=== PATIENT | male | born 1950 | race Caucasian/White ===

== ENCOUNTER 2020-07-21 08:16 | Day surgery (SDC) | payer MEDICARE ==
[~2020-07-21] VITALS: Ht 182.9 cm; Wt 107.8 kg
[2020-07-21] MEDS ORDERED: NORCO 325 MG-7.1 TAB PO (08:26)
[2020-07-21] MEDS ORDERED: ELIQUIS 5MG PO (08:27)
[2020-07-21] MEDS ORDERED: PACERONE200 MG PO (08:27)
[2020-07-21] MEDS ORDERED: CRESTOR 10MG10 MG PO (08:28)
[2020-07-21] MEDS ORDERED: HCTZ 25MG TAB25 MG PO (08:28)
[2020-07-21] MEDS ORDERED: VASOTEC 10M10 MG/TAB PO (08:29)
[2020-07-21] MEDS ORDERED: JANUVIA50 MG PO (08:30)
[2020-07-21] MEDS ORDERED: FLOMAX 0.40.4 MG/CAP PO (08:30)
[2020-07-21] MEDS ORDERED: ASPIRIN E.C. 8181 MG PO (08:31)
[2020-07-21 09:09] VITALS: BP 146/97; PULSE 59; TEMP 98.1
[2020-07-21 09:16] LABS: HEMATOCRIT 45.6 % (42.0-52.0); HEMOGLOBIN 15.5 g/dl (13.5-18.0); MEAN CELL VOLUME 93 fl (80.0-100.0); MEAN CORPUSCULAR HEMOGLOBIN 32 pg (27.0-31.0); MEAN CORPUSCULAR HGB CONC 34 g/dl (33.0-37.0); MEAN PLATELET VOLUME 9.5 fl (7.4-10.4); PLATELET COUNT 183 K/mm3 (130-400); RED BLOOD COUNT 4.91 M/mm3 (4.20-5.60); REDCELL DISTRIBUTION WIDTH-CV 12.8 % (11.5-14.5)
[2020-07-21 09:25] LABS: INR 1.2 (0.8-3.0); PROTHROMBIN TIME 13.7 SECONDS (9.7-12.8)
[2020-07-21 09:30] LABS: CREATININE, serum 0.97 (0.66-1.25); MAGNESIUM 2.2 mg/dL (1.6-2.3)
[2020-07-21 09:45] VITALS: BP 134/83; PULSE 50
[2020-07-21 10:00] VITALS: BP 130/79; PULSE 48
[2020-07-21 10:01] LABS: THYROID STIMULATING HORMONE 1.16 uIU/mL (0.465-4.680)
[2020-07-21 10:23] VITALS: BP 138/66; PULSE 58
--- NOTE | 2020-07-21 10:28 | NUR ---
INT discontinued intact. VSS.
--- NOTE | 2020-07-21 10:39 | NUR ---
Discharge instructions given . Transferred to private car by christy
== END 2020-07-21 10:41 | disposition home or self-care (01) ==
LOC: COL.CAR 08:16
PROVIDERS: Internal Medicine Cardiovascular Disease
DX: I48.19 Other persistent atrial fibrillation (principal); I10 Essential (primary) hypertension; E78.2 Mixed hyperlipidemia; I51.7 Cardiomegaly; F17.210 Nicotine dependence, cigarettes, uncomplicated; Z79.01 Long term (current) use of anticoagulants; E11.9 Type 2 diabetes mellitus without complications; Z79.84 Long term (current) use of oral hypoglycemic drugs; Z79.899 Other long term (current) drug therapy; Z79.82 Long term (current) use of aspirin
CPT/HCPCS: J2704; J7040

== ENCOUNTER 2024-02-08 11:14 | Inpatient (IN) | payer MEDICARE ==
[~2024-02-08] VITALS: Ht 182.9 cm; Wt 83.7 kg
[~2024-02-08 11:14] MED LIST: ASPIRIN E.C. 8181 MG PO; CRESTOR 10MG10 MG PO; ELIQUIS 5MG PO; FLOMAX 0.40.4 MG/CAP PO; HCTZ 25MG TAB25 MG PO; JANUVIA50 MG PO; NORCO 325 MG-7.1 TAB PO; PACERONE200 MG PO; VASOTEC 10M10 MG/TAB PO
[2024-02-08] MEDS ORDERED: NORVASC 5MG5 MG/TAB PO (16:17)
[2024-02-08] MEDS ORDERED: TYLENOL 500MG500 MG PO (16:17)
[2024-02-08] MEDS ORDERED: CELEBREX 200MG200 MG PO (16:19)
[2024-02-08] MEDS ORDERED: NEURONTIN100 MG/CAP PO (16:20)
[2024-02-08] MEDS ORDERED: ZANAFLEX 4MG TAB4 MG PO (16:21)
[2024-02-08] MEDS ORDERED: OZEMPIC1 MG/0.71 SQ (16:23)
--- NOTE | 2024-02-08 19:50 | NUR ---
Patient arrived to room [address] Small at bedside to see patient. VS WNL.
--- NOTE | 2024-02-08 20:00 | NUR ---
Admission assessment complete. A&Ox3. Denies shortness of breath. C/O pain to neck-Dr Small is aware and has placed orders-waiting for verifcation by pharmacy. Noted to have an incision to back of neck-C Collar on per order. Ochoa cath with yellow urine-sediment/sand present. Mepilex to coccyx-CDI. Patient states he has a neurogenic bladder and this is common for his urine. Plan of care discussed for this shift to include meds/pain control/repositioning/calling for questions/concerns. verbalizes understanding. Repositioned in bed with pillow support. Will monitor.
[2024-02-08] MEDS ORDERED: Acetaminophen 500 MG TAB PO PRN (20:15)
[2024-02-08] MEDS ORDERED: Docusate Sodium 100 MG CAP PO PRN (20:15)
[2024-02-08] MEDS ORDERED: Sennosides/Docusate 8.6-50 MG TAB PO PRN (20:15)
[2024-02-08] MEDS ORDERED: tiZANidine 4 MG TAB PO PRN (20:15)
[2024-02-08] MEDS ORDERED: Naloxone 0.4 MG/ML VIAL IV PRN (20:15)
[2024-02-08] MEDS ORDERED: oxyCODONE 5 MG TAB PO PRN (20:15)
[2024-02-08 20:44] VITALS: BP 127/57; PULSE 67; TEMP 98.4
[2024-02-08 21:00] VITALS: BP_SYST 127
[2024-02-08] MEDS ORDERED: Gabapentin 100 MG CAP PO SCH (21:00)
[2024-02-08] MEDS ORDERED: Polyethylene Glycol 3350 17 GM PDS PO SCH (21:00)
[2024-02-08] MEDS ORDERED: Amiodarone 200 MG TAB PO SCH (21:00)
[2024-02-08] MEDS ORDERED: Celecoxib 200 MG CAP PO SCH (21:00)
[2024-02-08] MEDS ORDERED: Apixaban 5 MG TABLET PO SCH (21:00)
--- NOTE | 2024-02-08 21:15 | NUR ---
Patient has been very uncomfortable since arriving rating pain 10/10 on pain scale to neck/back. States ride to hospital "was rough" and is nauseated from the pain. Oxycodone/tylenol given per dr order. Will monitor.
[2024-02-08] MEDS ORDERED: Atorvastatin 20 MG TAB PO SCH (21:30)
[2024-02-09] MEDS ORDERED: COLACE 100100 MG/CAP PO
[2024-02-09] MEDS ORDERED: MIRALAX238G PO (00:02)
[2024-02-09 01:05] VITALS: BP_SYST 127
--- NOTE | 2024-02-09 05:02 | NUR ---
Patient had an uneventful night. Received oxycodone and tylenol for pain x1 with good relief. VS stable. Tolerating PO. INT to left forearm DCd-cath intact. Ochoa cath with dark yellow urine-sediment/sand present. Denies current needs. call light in reach. Will monitor.
[2024-02-09 05:35] VITALS: BP 146/79; PULSE 63; TEMP 97.6
[2024-02-09] MEDS ORDERED: amLODIPine 5 MG TAB PO SCH (09:00)
[2024-02-09] MEDS ORDERED: Rosuvastatin 10 MG **** subs to Atorvastatin 20 MG PO SCH (09:00)
[2024-02-09] MEDS ORDERED: hydroCHLOROthiazide 25 MG TAB PO SCH (09:00)
--- NOTE | 2024-02-09 10:28 | NUR ---
Shift report received from night RN. No events reported overnight. Pt sleeping in bed. C-collar on. Gabriela patent to DD w/ clear yellow urine. Pt denies the need for pain medication at this time. Call light in reach. Bed alarm on.
--- NOTE | 2024-02-09 12:19 | NUR ---
Pt sitting up in wheelchair eating lunch after set up help provided. Pt assisted w/ AD for eating. Other needs denied. Call light in reach. Chair alarm in place.
--- NOTE | 2024-02-09 13:24 | NUR ---
edge worker met with patient to welcome to unit and complete assessment. Patient reports he lives in [place] by himself. Best point of contact is Moises Figueroa (daughter) P# [phone] and second contact is Syl Colon (sister) P# [phone]. PCP is Dr. Hawkins, pharmacy is [facility]. No issues affording medications. Insurance is Medicare A and B. DPOA-HC is Moises, CATHY will request copy. DME is walker, electric scotter and wheelchair. Patient needs assistance with ADLS. Moises or Syl transports patient to and from appointments. Patient expressed he has a basement at his home but typically does not have to go down them. Patient has a ramp in the back of his home. Patient would like to return home if possible. CATHY contacted Moises whom expressed she will be bringing a copy of the DPOA-HC today. Moises also expressed their ultimate goal is for him to return home with maybe home health if he is safe to do so but understands they may have to look at LTC if he is unable to return home. CATHY explained CATHY will be in touch and keep updated on his progress. Moises explained when it comes time for the family meeting, she would be available anytime after Monday next week. CATHY will continue to follow along.
[2024-02-09 17:43] VITALS: BP 150/82; PULSE 54; TEMP 98
--- NOTE | 2024-02-09 17:56 | NUR ---
Pt incontinent of BM in pull-up. Pt assisted to toilet w/ sit-stand lift. Hygiene completed. Cath care completed. Ochoa cath patent to DD w/ dark yellow urine. Pt has 2 shallow open ulcers w/ pink to red wound bed w/o slough to left inner buttock w/ each ulcer measuring approx 0.6cm x 0.6 cm. Larger open ulcer w/ shallow red to pink wound bed w/o slough noted to coccyx measuring approx 2cm x 0.8cm. R inner buttock has 1 shallow ulcer w/ pink to red wound bed w/o slough measuring approx 0.5cm x 0.5 cm. Sacral mepilex applied over covering all ulcers. Pt has specialty air mattress on bed & pressure relieving cushion in wheelchair. Pt transferred from toilet to wheelchair at his request. Pt eating dinner independently w/ adaptive equipment after set up help was provided. Will continue to monitor.
[2024-02-09 19:30] VITALS: BP_SYST 150
--- NOTE | 2024-02-10 01:22 | NUR ---
Shift assessment completed- see documentation. Pt is alert and oriented. He was in his wheelchair at the bedside at time of assessment. He was complaining of 7/10 pain on his buttocks. PM meds were administered as ordered. He was transfered to the bed with the sit to stand lift. Pt was positioned on his left side. He now reports his pain to be a 1/10. He was again repositioned to be on his back now. He denies any other needs at this time. Call light left within reach and fall recautions in place.
[2024-02-10 05:44] VITALS: BP 138/74; PULSE 59; TEMP 98
[2024-02-10 06:30] VITALS: BP_SYST 138
--- NOTE | 2024-02-10 09:32 | NUR ---
Shift report received from night RN. No events reported overnight. Pt up to wheelchair for breakfast this morning. Pt ate independently w/ AD after set up help provided. Mepilex to coccyx CDI. Pt currently sleeping in bed w/ even & unlabored. Call light in reach.
--- NOTE | 2024-02-10 10:04 | NUR ---
Pt up to wheelchair w/ sit to stand lift.
--- NOTE | 2024-02-10 12:37 | NUR ---
Pt off unit w/ PT/OT.
--- NOTE | 2024-02-10 15:23 | NUR ---
Pt sitting up in wheelchair. Denies pain/discomfort. Anterior neck dressing noted to have dried blood. Dressing removed to reveal CDI steri strips to anterior neck incision. Pt stating he had an HV drain there that was removed. Steristrips left open to air. C-Collar placed back on. Pt denies any needs at this time. Call light in reach. Chair alarm in place. Gabriela patent to DERIC.
[2024-02-10 17:26] VITALS: BP 113/66; PULSE 65; TEMP 97.8
[2024-02-10 18:35] VITALS: BP_SYST 113
[2024-02-11 05:19] VITALS: BP 134/74; PULSE 60; TEMP 98.3
[2024-02-11 07:44] VITALS: BP_SYST 134
--- NOTE | 2024-02-11 07:45 | NUR ---
Shift report received from night RN. No events reported overnight. Pt transferred from bed to using 2 person asst. Set up help provided for breakfast. Pt denies the need for pain medication at this time. Steri strips to anterior neck incision remain CDI w/ steri strips. C-Collar on. Mepilex to coccyx ulcers CDI. Pt denies other needs at this time. Call light in reach. Chair alarm in place. Gabriela patent to DERIC.
[2024-02-11 17:06] VITALS: BP 131/71; PULSE 57; TEMP 97.9
[2024-02-11 18:35] VITALS: BP_SYST 131
[2024-02-12 05:31] VITALS: BP 126/73; PULSE 63; TEMP 98.3
[2024-02-12 07:04] VITALS: BP_SYST 126
--- NOTE | 2024-02-12 09:17 | NUR ---
PT SITTIGN UP IN CHAIR, ALERT AND ORIENTEDX4. RATES PAIN 4/[address]. PT STATES "BOTH SIDES WERE NUMB WHEN I WOKE UP THIS MORNING BUT THE LEFT SIDE IS GETTING A LITTLE BETTER NOW THAT I HAVE BEEN UP". RIGHT SIDE IS WEAKER THAN LEFT. PT HAS EDEMA IN BOTH RIGHT SIDE EXTREMITIES. PT HAS C-COLAR ON. ASSESSED AND GAVE MORNING MEDS. NO OTHER COMPLAINTS AT THIS TIME. CALL LIGHT WITHIN REACH.
--- NOTE | 2024-02-12 13:53 | NUR ---
public welfare worker met with patient and his family to check in on how patient has been doing. Patient expressed he was doing well and had a good workout with PT. Family asked about length of stay. SW explained it depends on patient's continued progress but they would schedule a family meeting when they feel patient would be ready for discharge to discuss progress and plans moving forward. No further questions or concerns at this time.
[2024-02-12 18:43] VITALS: BP 122/68; PULSE 84; TEMP 98.6
[2024-02-12 19:00] VITALS: BP_SYST 122
--- NOTE | 2024-02-12 20:30 | NUR ---
Patient back to bed via sit to stand. Did well with transfer. Requesting oxycodone for back/neck pain-rating 5/10. Given at this time per dr order.
--- NOTE | 2024-02-13 00:05 | NUR ---
Resting in bed eyes closed. NO s/s of pain or discomfort noted. Will monitor.
[2024-02-13 05:46] VITALS: BP 148/75; PULSE 62; TEMP 97.3
[2024-02-13 06:50] VITALS: BP_SYST 148
--- NOTE | 2024-02-13 10:53 | NUR ---
PT RESTING IN BED, ALERT AND ORIENTEDX4. PT RATES PAIN 4/10 THIS MORNING IN THE KNECK. PT STILL HAS RIGHT SIDED WEAKNESS. PT HAD AN INCONTINENT BOWEL MOVEMENT THIS MORNING. ASSESSED PT AND GAVE MORNING MEDS. NO OTHER COMPLAINTS AT THIS TIME. CALL LIGHT WITHIN REACH.
[2024-03-11 18:00] VITALS: BP 121/69; PULSE 69; TEMP 98.1
--- NOTE | 2024-03-12 04:12 | NUR ---
An Electronic Health Record (EHR) downtime even occurred during this patient's care. For legal medical record information generated during the downtime period, please reference the patient's legal medical record. Paper or scanned documentation has been incorporated into the legal medical record which is maintained in accordance with Health Information Management (HIM) and record retention policies.
[2024-03-12] MEDS ORDERED: Acetaminophen 500 MG TAB PO PRN (05:30)
[2024-03-12] MEDS ORDERED: Naloxone 0.4 MG/ML VIAL IV PRN (05:45)
[2024-03-12] MEDS ORDERED: Celecoxib 200 MG CAP PO PRN (05:45)
[2024-03-12] MEDS ORDERED: tiZANidine 4 MG TAB PO PRN (05:45)
[2024-03-12] MEDS ORDERED: oxyCODONE 5 MG TAB PO PRN (05:45)
[2024-03-12] MEDS ORDERED: Sennosides/Docusate 8.6-50 MG TAB PO PRN (05:45)
[2024-03-12 05:56] VITALS: BP 123/77; PULSE 58; TEMP 97.9
[2024-03-12 06:00] VITALS: BP 123/77; PULSE 58; TEMP 97.9
[2024-03-12] MEDS ORDERED: Cefuroxime 250 MG TAB PO SCH (08:00)
[2024-03-12] MEDS ORDERED: Insulin Lispro (HumaLOG) SQ SCH (08:00)
[2024-03-12] MEDS ORDERED: Amiodarone 200 MG TAB PO SCH (09:00)
[2024-03-12] MEDS ORDERED: Polyethylene Glycol 3350 17 GM PDS PO SCH (09:00)
[2024-03-12] MEDS ORDERED: Apixaban 5 MG TABLET PO SCH (09:00)
[2024-03-12] MEDS ORDERED: Docusate Sodium 100 MG CAP PO SCH (09:00)
[2024-03-12] MEDS ORDERED: Gabapentin 300 MG CAP PO SCH (09:00)
[2024-03-12] MEDS ORDERED: hydroCHLOROthiazide 25 MG TAB PO SCH (09:00)
[2024-03-12] MEDS ORDERED: amLODIPine 5 MG TAB PO SCH (09:00)
--- NOTE | 2024-03-12 09:46 | NUR ---
PT UP TO WHEEL CHAIR FOR BREAKFAST. AM MEDS GIVEN ORDERED. TO BR HAD BM AND THEN BACK TO WHEEL CHAIR WITH ASSIST X1. PT EATING AND DRINKING NO N/V REPORTED. PT DENIES PAIN OR NEED FOR MEDS. CONTINUE WITH PLAN OF CARE.
--- NOTE | 2024-03-12 12:06 | NUR ---
Dough Panner was contacted by patient's daughter, Lety yesterday who advised patient was telling her he is going to [place] . This morning, CATHY spoke with rehab team and no discharge date is set at this time. SW attempted to contact Lety back and left a message.
[2024-03-12 13:00] VITALS: BP_SYST 123
[2024-03-12 17:00] VITALS: BP_SYST 123
[2024-03-12 18:05] VITALS: BP 113/73; PULSE 55; TEMP 98
--- NOTE | 2024-03-12 20:40 | NUR ---
PT IN BED, HAS BEEN OKAYED BY PHYSICAL THERAPY TO TRANSFER SELF INDEPENDENTLY TO BATHROOM, W/C AND WALKER AT BEDSIDE. PT IS ALERT AND ORIENTED X4. C-COLLAR IN PLACE, INCISIONS HEALED TO NECK. REPLACED MEPILEX TO COCCYX, AREAS PREVIOUSLY OPEN ARE HEALED. HAS SCATTERED BRUISING TO BOTH ARMS AND ABRASION TO LT ELBOW IS HEALED. HS MEDS GIVEN. DENIES NEED FOR PAIN MEDS. DESIR REMAINS IN PLACE. RLE WITH 1+ EDEMA. WILL MONITOR FOR CHANGES.
[2024-03-12] MEDS ORDERED: Atorvastatin 20 MG TAB PO SCH (21:00)
[2024-03-13 05:50] VITALS: BP 140/74; PULSE 53; TEMP 97.8
[2024-03-13 07:12] VITALS: BP_SYST 140
--- NOTE | 2024-03-13 10:44 | NUR ---
PT SITTING UP IN WHEEL CHAIR, ALERT AND ORIENTEDX4. NO COMPLAINTS OF PAIN AT THIS TIME. ASSESSED. STILL HAS SOME RIGHT SIDED WEAKNESS. GAVE MORNING MEDS. NO OTHER COMPLAINTS AT THIS TIME. CALL LIGHT WITHIN REACH.
--- NOTE | 2024-03-13 15:28 | NUR ---
Clinical Quality Manager met with patient and his daughter, Lety to provide update on discharge plan. SW discussed tentative discharge date of , 03/21/24. Lety stated she may still be out of town on vacation, but that patient's friend, Andres (ph#[phone]) or cousin, Andres Delgado (ph#[phone]) could assist in getting patient home. SW also advised she would be ordering FWW/wheechair as well as Home Health. SW received a call from Lety later on who advised their plans changed due to her 's work schedule, so they are actually coming home the meaning they can belt picker patient on the . SW met with patient to provide copy of team conference note as well as Medicare.gov list of HH options. Patient stated Lety has a FWW for him and he was agreeable to have wheelchair ordered through [facility].
[2024-03-13 17:48] VITALS: BP 132/65; PULSE 52; TEMP 97.8
[2024-03-13 19:00] VITALS: BP_SYST 132
--- NOTE | 2024-03-13 21:40 | NUR ---
PT RESTING IN BED. TAKES HS MEDS WITHOUT PROBLEM. RLL WITH 1+ PITTING EDEMA. MEPILEX INTACT TO COCCYX. DENIES NEED FOR PAIN MEDS. SOFT C-COLLAR IN PLACE. DESIR TO BSD WITH CLOUDY YELLOW URINE.
[2024-03-14 05:28] VITALS: BP 124/72; PULSE 52; TEMP 97.9
[2024-03-14 06:52] VITALS: BP_SYST 124
--- NOTE | 2024-03-14 08:24 | NUR ---
PT RESTING IN BED, ALERT AND ORIENTEDX4. NO COMPLAINTS OF PAIN AT THIS TIME. ASSESSED PT. GAVE MORNING MEDS. NO OTHER COMPLAINTS AT THIS TIME. PT INDEPENDENT IN ROOM. CALL LIGHT WITHIN REACH.
--- NOTE | 2024-03-14 10:42 | NUR ---
Tie Presser contacted [facility] and ordered a wheelchair for patient.
[2024-03-14 16:49] VITALS: BP 133/67; PULSE 56; TEMP 98.2
[2024-03-14 18:59] VITALS: BP_SYST 133
--- NOTE | 2024-03-14 20:36 | NUR ---
PATIENT RESTING IN BED UPON ENTERING ROOM. EVENING MEDICATIONS ADMINISTERED. SHIFT ASSESSMENT COMPLETED. PATIENT DENIES ANY PAIN AT THIS TIME. DESIR DRAINING CLEAR YELLOW URINE. C COLLAR IN PLACE. CALL LIGHT WITHIN REACH. MEPILEX REPLACED TO REDDENED SACRAL AREA. WILL CONTINUE TO MONITOR.
--- NOTE | 2024-03-15 00:20 | NUR ---
Received report from Clarissa ARGUELLO. Patient resting in bed, awake at this time, denies further needs, still with wyatt to dependent drainage, C-collar on, call light and personal items within reach, will continue to monitor.
[2024-03-15 05:31] VITALS: BP 117/68; PULSE 63; TEMP 98.2
--- NOTE | 2024-03-15 06:02 | NUR ---
Patient awake at this time, refused to go to the bathroom at this time for timed toileting schedule.
[2024-03-15 06:59] VITALS: BP_SYST 117
--- NOTE | 2024-03-15 08:51 | NUR ---
PT UP TO SHOWER WITH OT. AM MEDS GIVEN, INSULIN PER SS. EATING AND DRINKING NO N/V. DESIR TO DD. MEPILEX CHANGED AFTER SHOWER.
--- NOTE | 2024-03-15 13:49 | NUR ---
Labor Relations Or Personnel Negotiator followed up with patient on Home Health. Patient reviewed list provided earlier this week and selected [facility]. SW contacted [facility] and faxed referral for review. SW contacted patient's daughter, Lety to provide update before the weekend.
[2024-03-15 17:02] VITALS: BP 136/70; PULSE 58; TEMP 97.8
[2024-03-15 19:14] VITALS: BP_SYST 136
--- NOTE | 2024-03-15 21:02 | NUR ---
Patient assessed at this time, see shift assessment, A/Ox4, denies pain or discomfort, c-collar on, still with wyatt to dependent drainage, denies further needs, call light and personal items within reach, will continue to monitor.
[2024-03-16 05:57] VITALS: BP 127/70; PULSE 53; TEMP 98
--- NOTE | 2024-03-16 05:59 | NUR ---
Patient refused to go to the bathroom at this time, patient reports he already had a BM this morning.
[2024-03-16] MEDS ORDERED: Dextrose (Glucose) 15 GM (4 x 3.75 GM) Chewable TABLET PACK PO PRN (07:30)
[2024-03-16] MEDS ORDERED: Dextrose 50% Water 25 GM/50 ML SYRINGE IV PRN (07:30)
[2024-03-16] MEDS ORDERED: Glucagon 1 MG VIAL IM PRN (07:30)
[2024-03-16 08:12] VITALS: BP_SYST 127
--- NOTE | 2024-03-16 10:00 | NUR ---
patient came back from group therapy in wheel chair. shift assessemt was completed at this time. patient denies pain and transfered from wheel chair to bed. Patient is room air, had a wyatt. wearing C-collar at this time. expresses had a bowel movement early this morning. medication was given per nov. call light within reach. bed at lowest position.
[2024-03-16 17:00] VITALS: BP 130/68; PULSE 56; TEMP 98.4
[2024-03-16 19:00] VITALS: BP_SYST 130
--- NOTE | 2024-03-16 20:02 | NUR ---
Patient resting in bed, watching TV, in good spirits, denies pain or discomfort, c-collar on, with wyatt to dependent drainage, took pills fine, denies further needs, call light and personal items within reach, will continue to monitor.
[2024-03-17 06:00] VITALS: BP 142/76; PULSE 52; TEMP 97.8
[2024-03-17 07:00] VITALS: BP_SYST 142
--- NOTE | 2024-03-17 08:49 | NUR ---
PT SITTING UP IN BED EATING BREAKFAST. AM MEDS GIVEN ORDERED. PT DENIES NEEDS. EATING MEPLEX TO COCCYX, DESIR CATHETER TO DD WITH CLEAR YELLOW URING. PT IS INDEPENDENT IN ROOM AND HALLS WITH WHEEL CHAIR.
[2024-03-17 16:55] VITALS: BP 110/66; PULSE 53; TEMP 97.9
[2024-03-17 19:00] VITALS: BP_SYST 110
--- NOTE | 2024-03-17 20:30 | NUR ---
PT UP IN W/C, FAMILY HERE TO VISIT. HAS BEEN MOD I, AND DOING WELL. MEPILEX TO COCCYX CHANGED 03/16/24. HS MEDS GIVEN. DESIR TO BSD WITH HAZY YELLOW URINE. DENIES PAIN AT THIS TIME.
--- NOTE | 2024-03-18 06:00 | NUR ---
PT RESTED WELL THIS SHIFT. SOFT C-COLLAR ON. MOD I IN ROOM. KARLEE PATENT.
[2024-03-18 06:04] VITALS: BP 132/71; PULSE 59; TEMP 98.1
[2024-03-18 06:30] VITALS: BP_SYST 132
--- NOTE | 2024-03-18 08:03 | NUR ---
SHIFT ASSESSMENT COMPLETE. VSS. ALL MORNING MEDS GIVEN PER ORDERS. PATIENT FINISHING UP BREAKFAST IN BED. PATIENT HAS NO REQUEST OR COMPLAINTS AT THIS TIME. FALL PRECAUTIONS IN PLACE AND CALL LIGHT IN REACH.
--- NOTE | 2024-03-18 10:03 | NUR ---
SW met with patient to discuss upcoming discharge scheduled for 03/21/2024. Patient excited to be going home. Updated on referral to [facility] which patient is agreeable. Discharge plan: Home with [facility]
[2024-03-18 17:26] VITALS: BP 120/69; PULSE 58; TEMP 97.8
[2024-03-18 19:20] VITALS: BP_SYST 120
[2024-03-18 21:40] VITALS: BP 120/67; PULSE 55; TEMP 98
--- NOTE | 2024-03-19 05:20 | NUR ---
ASSESSMENT COMPLETE FOR TRAFFIC ENGINEER. PT HAD A MOSTLY UNEVENTFUL NIGHT. PT'S HR WAS 55. PROVIDER CALLED. AMIODARONE OK'ED TO BE HELD LAST NIGHT. PT DENIED GENERAL PAIN, CHEST PAIN, PALPITATIONS, SOB, N,V,D OR DIZZINESS. CALL LIGHT WITHIN REACH.
[2024-03-19 06:04] VITALS: BP 140/70; PULSE 68; TEMP 97.6
--- NOTE | 2024-03-19 08:00 | NUR ---
SHIFT ASSESSMENT COMPLETE. VSS. ALL MORNING MEDS GIVEN PER ORDERS. PATIENT RESTING IN BED WATCHING TV AND FINISHING UP BREAKFAST. PATIENT REPORTS NO PAIN THIS AM OR HAS ANY REQUEST AT THIS TIME. CALL LIGHT IN REACH.
[2024-03-19 17:15] VITALS: BP 146/82; PULSE 58; TEMP 97.5
[2024-03-19 18:45] VITALS: BP_SYST 146
--- NOTE | 2024-03-19 21:00 | NUR ---
PT INDEPENDENT IN ROOM. HAS INTACT MEPILEX TO COCCYX. HS MEDS GIVEN. DENIES PAIN. PT ANXIOUS FOR MONDAY DISCHARGE. IS ALERT AND ORIENTED X4. DESIR TO BSD WITH YELLOW URINE. SOFT C-COLLAR ON.
[2024-03-20 06:07] VITALS: BP 135/71; PULSE 57; TEMP 97.8
[2024-03-20 07:00] VITALS: BP_SYST 135
--- NOTE | 2024-03-20 13:07 | NUR ---
SW attended team conference meeting with interdisciplinary team. Patient is schedued for discharge tomorrow, 03/21/24. CATHY met with patient in room to discuss discharge plan and review notes from team meeting. Patient voices excitement to be returning home. Discussed referral to [facility] and delivery of wheelchair to be delivered by [facility] this afternoon. Discussed Medicare IM form with patient who is agreeable to discharge. He signed the form, original on chart, copy provided to patient. Patient states his daughter will pick him up to transport to home. Discharge plan: Home with [facility]
[2024-03-20 17:48] VITALS: BP 108/67; PULSE 60; TEMP 97.9
[2024-03-20 19:00] VITALS: BP_SYST 108
--- NOTE | 2024-03-20 20:22 | NUR ---
PT IN BED, IS ALERT AND ORIENTED X4. HAS SOFT C-COLLAR ON, INCISION HEALED BENEATH. MEPILEX TO COCCYX CHANGED AT THIS TIME, AREA HEALED, MILDLY REDDENED. PT ANXIOUS TO DISCHARGE TOMORROW.
[2024-03-21 05:56] VITALS: BP 137/74; PULSE 55; TEMP 97.6
[2024-03-21 07:00] VITALS: BP_SYST 137
[2024-03-21] MEDS ORDERED: CEFTIN 250250 MG/TAB PO (09:36)
[2024-03-21] MEDS ORDERED: FLOMAX 0.40.4 MG/CAP PO (09:37)
[2024-03-21] MEDS ORDERED: NEURONTIN300 MG/CAP PO (09:38)
[2024-03-21] MEDS ORDERED: COLACE 100100 MG/CAP PO (09:39)
--- NOTE | 2024-03-21 10:02 | NUR ---
novelty worker faxed discharge orders to [facility] for discharge today. CATHY notes IM from Medicare was completed yesterday. CATHY confirmed wheelchair was delivered by [facility] yesterday. Discharge Plan: home with [facility] today
--- NOTE | 2024-03-21 10:30 | NUR ---
PATIENT DISCHARGING TODAY, SEE ORDERS. GAVE DISCHARGE INSTRUCTIONS, E-SCRIPTS SENT, AND DISCUSSED F/U APTS. ANSWERED QUESTIONS/CONCERNS. NO IV SITE. PATIENT IS DRESSED, PACKED AND WAITING FOR HIS RIDE AT 1100.
--- NOTE | 2024-03-21 11:05 | NUR ---
PATIENT'S RIDE IS HERE, PATIENT DISCHARGING VIA WC TO PERSONAL VEHICLE WITH DESIR INPLACE AND PERSONAL BELONGINGS SENT. PATIENT DISCHARGED.
--- NOTE | 2024-03-21 13:39 | NUR ---
Follow-up: Cecilio happily shared with Manager Commission that he is going home today after being here over 40 days. Manager Commission wished Cecilio God Speed and told him to stay well and God Bless.
--- NOTE | 2024-03-22 07:45 | NUR ---
Discharge QIM scores were reviewed by the team. Code of 6 chosen for sit to stand was determined by team discussion to be the most usual performance for this patient during the discharge assessment period.--PD Trini
== END 2024-03-21 11:05 | disposition home health service (06) | DRG 551 ==
PROVIDERS: Physician Assistant; ADMIT Physical Medicine & Rehabilitation Sports Medicine
DX: M47.12 Other spondylosis with myelopathy, cervical region (principal); L89.153 Pressure ulcer of sacral region, stage 3; G95.89 Other specified diseases of spinal cord; K59.2 Neurogenic bowel, not elsewhere classified; K56.7 Ileus, unspecified; N39.0 Urinary tract infection, site not specified; R26.89 Other abnormalities of gait and mobility; E11.42 Type 2 diabetes mellitus with diabetic polyneuropathy; R29.898 Other symptoms and signs involving the musculoskeletal system; I10 Essential (primary) hypertension; I48.91 Unspecified atrial fibrillation; E78.5 Hyperlipidemia, unspecified; I25.10 Atherosclerotic heart disease of native coronary artery without angina pectoris; B96.20 Unspecified Escherichia coli [E. coli] as the cause of diseases classified elsewhere; Z98.1 Arthrodesis status; W19.XXXA Unspecified fall, initial encounter; Y92.230 Patient room in hospital as the place of occurrence of the external cause; Z79.01 Long term (current) use of anticoagulants; Z79.891 Long term (current) use of opiate analgesic; Z79.82 Long term (current) use of aspirin; Z79.899 Other long term (current) drug therapy; Z79.4 Long term (current) use of insulin; Z74.09 Other reduced mobility; Z87.891 Personal history of nicotine dependence; N40.1 Benign prostatic hyperplasia with lower urinary tract symptoms; R33.8 Other retention of urine
CPT/HCPCS: A9284; J1815

== ENCOUNTER 2024-06-12 13:02 | Day surgery (SDC) | payer MEDICARE ==
[~2024-06-12] VITALS: Ht 182.9 cm; Wt 95.9 kg
[2024-06-12] VITALS (10 sets, daily range): BP systolic 112–157; BP diastolic 58–85; PULSE 51–60; TEMP 97.5–97.9
[~2024-06-12 13:02] MED LIST changes: +CEFTIN 250250 MG/TAB PO; +CELEBREX 200MG200 MG PO; +COLACE 100100 MG/CAP PO; +LR 1,000 ML IV SCH; +MIRALAX238G PO; +NEURONTIN100 MG/CAP PO; +NEURONTIN300 MG/CAP PO; +NORCO 325 MG-51 TAB PO; +NORVASC 5MG5 MG/TAB PO; +OZEMPIC1 MG/0.71 SQ; +TYLENOL 500MG500 MG PO; +VICODIN ES 7.5 PO; +ZANAFLEX 4MG TAB4 MG PO
[2024-06-12] MEDS ORDERED: Midazolam 2 MG/2 ML VIAL IV ONE (15:01)
[2024-06-12] MEDS ORDERED: fentaNYL 50 MCG/ML 2 ML VIAL IV ONE (15:01)
[2024-06-12] MEDS ORDERED: Lidocaine PF 2% (20 MG/ML) 5 ML VIAL IV ONE (15:01)
--- NOTE | 2024-06-12 15:13 | NUR ---
Patient admitted to [facility] bay 3 at 1321. Pt ambulates with walker, uses w/c for long distances. Glasses and dentures in place. Pt admitted with wyatt catheter. 20G IV inserted to right wrist by Ruma Mason RN. 2 failed attempts prior to that start. Unstageable ulcer to left lateral ankle [id number]. Aquacel foam dressing applied. BLE edema noted. Alert, oriented x4. Consents signed. Admission assessments complete. Allergies, pharmacy and medications confirmed. Blood sugar checked. See emar for medications. Call light within reach, cart in low position.
[2024-06-12] MEDS ORDERED: NS Irrig Soln 3000 ML SOLN IR PRN (15:30)
[2024-06-12] MEDS ORDERED: Acetaminophen 325 MG TAB PO PRN (15:30)
[2024-06-12] MEDS ORDERED: Magnes Hydrox (MOM) 80 MG/ML 30 ML CUP PO PRN (15:30)
[2024-06-12] MEDS ORDERED: Hyoscyamine 0.125 MG Sublingual TAB SL PRN (15:30)
[2024-06-12] MEDS ORDERED: Ondansetron 4 MG/2 ML VIAL IV PRN ×2 (15:30→16:30)
[2024-06-12] MEDS ORDERED: Morphine 4 MG/ML VIAL IV PRN (15:30)
[2024-06-12] MEDS ORDERED: 1/2 NS & 20 mEq KCl 1,000 ML IV SCH (15:30)
[2024-06-12] MEDS ORDERED: ePHEDrine 50 MG/ML VIAL IV ONE (16:01)
[2024-06-12] MEDS ORDERED: Ondansetron 4 MG/2 ML VIAL IV ONE (16:04)
[2024-06-12] MEDS ORDERED: Meperidine 50 MG/ML 1 ML VIAL IV PRN (16:30)
[2024-06-12] MEDS ORDERED: fentaNYL 50 MCG/ML 1 ML SYRINGE/VIAL [PACU/SDC ONLY] IV PRN (16:30)
[2024-06-12] MEDS ORDERED: HYDROmorphone 1 MG/1 ML SYRINGE [PACU/SDC ONLY] IV PRN (16:30)
[2024-06-12] MEDS ORDERED: LR 1,000 ML IV ONE (16:37)
--- NOTE | 2024-06-12 17:55 | NUR ---
PATIENT BROUGHT TO FLOOR AT APPROXIMATELY 1745. POST OP VITALS RUNNING AND WNL. FLUIDS INFUSING INTO RIGHT WRIST AT 75ML/HOUR. CBI RUNNING SLOW WITH LIGHT PINK OUTPUT. PATIENT DENIES ANY PAIN OR BLADDER SPASMS. PATIENT TOLERATING PO. WILL ADVANCE DIET. NO FURTHER NEEDS CALL LIGHT IN REACH.
--- NOTE | 2024-06-12 17:59 | NUR ---
PATIENT ALERT AND ORIENTED X4. VSS. PATIENT HERE FOR TURP. PATIENT DENIES ANY PAIN. DIET ORDER PLACE. NO FURTHER NEEDS. CALL LIGHT IN REACH.
[2024-06-12] MEDS ORDERED: Gabapentin 300 MG CAP PO SCH (21:00)
[2024-06-12] MEDS ORDERED: Amiodarone 200 MG TAB PO SCH (21:00)
[2024-06-12] MEDS ORDERED: Celecoxib 200 MG CAP PO SCH (21:00)
[2024-06-12] MEDS ORDERED: Rosuvastatin 10 MG **** subs to Atorvastatin 20 MG PO SCH (21:00)
[2024-06-12] MEDS ORDERED: Atorvastatin 20 MG TAB PO SCH (21:00)
[2024-06-12] MEDS ORDERED: Docusate Sodium 100 MG CAP PO SCH ×2 (21:00)
--- NOTE | 2024-06-12 21:19 | NUR ---
Patient assessed at this time, see shift assessment, denies pain or discomfort, CBI running slow to moderate, drainage light red to pink with some sediments, no clots noted. denies further needs, call light and personal items within reach, will continue to monitor.
[2024-06-13] VITALS (7 sets, daily range): BP systolic 125–146; BP diastolic 63–73; PULSE 51–53; TEMP 97.4–98.2
--- NOTE | 2024-06-13 06:30 | NUR ---
Patient had an uneventful night, denies pain or discomfort, CBI still running slow to moderate, drainage pink.
[2024-06-13] MEDS ORDERED: hydroCHLOROthiazide 25 MG TAB PO SCH (09:00)
[2024-06-13] MEDS ORDERED: Polyethylene Glycol 3350 17 GM PDS PO SCH (09:00)
[2024-06-13] MEDS ORDERED: amLODIPine 5 MG TAB PO SCH (09:00)
--- NOTE | 2024-06-13 09:03 | NUR ---
Pt doing well this morning. CBI running at slow rate, output is pink tinged. Jon with urology has been in and did give order to remove wyatt cathter. Pt has no complaints, will continue to monitor
--- NOTE | 2024-06-13 09:40 | NUR ---
Pt continues to do well. I did prime and pull wyatt catheter. Educated pt on using the urinal when he needs to void. Educated him on the plan of care for the day and possible discharge this afternoon. Pt denies having any pain, no needs at this time
--- NOTE | 2024-06-13 11:49 | NUR ---
Pt doing well up to this point. He has voided x2, some small clots seen, but no issues voiding. No complaints of pain. He is sitting up in the chair at this time. He has ordered lunch, no other needs
--- NOTE | 2024-06-13 14:03 | NUR ---
SW faxed discharge orders and clinicals to [facility]. Discharge plan: Home with HH
--- NOTE | 2024-06-13 14:15 | NUR ---
Pt has voided x5. Last 4 cups were slightly pink tinged, no clots seen. Reviewed discharge instructions with pt. Pts sister and brother in law present during this time. INT removed from right wrist and pt escorted out
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
== END 2024-06-13 14:15 | disposition home or self-care (01) ==
LOC: SDCO 13:02 → SURG 17:45 → SDCO 06-13 14:15
DX: N40.1 Benign prostatic hyperplasia with lower urinary tract symptoms (principal); N31.2 Flaccid neuropathic bladder, not elsewhere classified; R39.12 Poor urinary stream; R35.1 Nocturia; R39.14 Feeling of incomplete bladder emptying; R33.8 Other retention of urine; I10 Essential (primary) hypertension; E66.9 Obesity, unspecified; F17.210 Nicotine dependence, cigarettes, uncomplicated; Z79.01 Long term (current) use of anticoagulants; Z79.899 Other long term (current) drug therapy
CPT/HCPCS: OP; J0690; J2250; J2405; J2704; J2795; J3010; J3480; J7120